=== PATIENT | female | born 1945 | race Hispanic/Latino ===

== ENCOUNTER 2019-10-21 12:11 | Outpatient (CLI) | payer MEDICARE ==
--- NOTE | 2019-10-21 13:28 | Ultrasound Report ---
LEFT BREAST ULTRASOUND HISTORY: The patient presents for evaluation of an area of clinical concern in the retroareolar area of the left breast. COMPARISON: [facility] 09/29/2019 mammogram and ultrasound. FINDINGS: Sonographic evaluation focused upon the area of clinical concern in the retroareolar locati on demonstrates mild duct ectasia at 3:00 but no intraductal mass. No cyst or suspicious shadowing. 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 No mass or suspicious finding. If the clinical examination remains stable, recommend annual screening mammographic evaluation. BIRADS 2: Benign Signer Name: Khoa Steiner MD Signed: 10/21/2019 1:24 PM Workstation Name: [id number]
== END 2019-10-21 12:12 | disposition home or self-care (01) ==
LOC: SPVWC 12:11
PROVIDERS: ATTEND Surgery
DX: N60.42 Mammary duct ectasia of left breast (principal)

== ENCOUNTER 2019-11-10 09:15 | Outpatient (CLI) | payer MEDICARE | END 2019-11-10 09:16 | disposition home or self-care (01) | LOC: LABHHL 09:15 | PROVIDERS: ATTEND Surgery | DX: N64.89 Other specified disorders of breast (principal) | CPT/HCPCS: 88305; 88312 ==

== ENCOUNTER 2019-11-20 19:51 | Emergency (ER) | payer MEDICARE ==
[2019-11-20] MEDS ORDERED: ASPIRIN 325 MG TAB PO ONE (22:51)
[2019-11-20 23:54] LABS: Basophils # (Auto) 0.1 K/mm3 (0.0-0.1); Basophils % (Auto) 0.7 % (0.0-1.8); Eosinophils # (Auto) 0.6 K/mm3 (0.0-0.4); Hematocrit 42.8 % (30.3-42.9); Hemoglobin 14.6 gm/dl (10.1-14.3); Lymphocytes # (Auto) 3.1 K/mm3 (1.2-5.4); Lymphocytes % (Auto) 38.8 % (13.4-35.0); Mean Corpuscular HGB Conc 34 % (30-34); Mean Corpuscular Volume 93 fl (79-97); Monocytes # (Auto) 0.9 K/mm3 (0.0-0.8); Monocytes % (Auto) 11.2 % (0.0-7.3); Platelet Count 184 K/mm3 (140-440); Red Blood Count 4.58 M/mm3 (3.65-5.03); Red Cell Distribution Width 14.6 % (13.2-15.2)
[2019-11-21 00:17] LABS: BUN/Creatinine Ratio 14; Blood Urea Nitrogen 17 mg/dL (7-17); Calcium 9.7 mg/dL (8.4-10.2); Hemolysis Index 26
--- NOTE | 2019-11-21 00:22 | XRay Report ---
CHEST 1 VIEW INDICATION: Chest Pain. COMPARISON: None FINDINGS: SUPPORT DEVICES: None. HEART / MEDIASTINUM: No significant abnormality. LUNGS / PLEURA: No significant pulmonary or pleural abnormality. No pneumothorax. ADDITIONAL FINDINGS: IMPRESSION: 1. No acute findings. Signer Name: Anton Mcarthur MD Signed: 11/21/2019 12:18 AM Workstation Name: [id number]
[2019-11-21] MEDS ORDERED: LIDOCAINE VISCOUS 2% 15 ML ORAL LIQD PO ONE (02:27)
[2019-11-21] MEDS ORDERED: ALUM-MAG HYDROXIDE-SIMETHICONE 200-200-20MG/5ML ORAL LIQD 30 ML PO ONE (02:27)
--- NOTE | 2019-11-21 02:27 | Emergency Department Report ---
ED General Adult HPI - General Chief complaint: Chest Pain Stated complaint: CP/SOB/DIFF SWALLOWING/RASH Time Seen by Provider: 11/21/19 01:52 Source: patient Mode of arrival: Ambulatory Limitations: No Limitations - History of Present Illness Initial comments: Patient is a 74-year-old female who presents with difficulty swallowing and rash that occurred after patient got a breast biopsy. Patient states that her pain is a burning type of pain is moderate eating or drinking makes it worse nothing makes it better. Patient follows Dr. Augustine gastritis issues. Patient also has broken on a rigid it she rash ever since she got the breast biopsy. - Related Data Home Medications Medication Instructions Recorded Confirmed Last Taken Citalopram HBr 20 mg PO DAILY 09/30/18 09/30/18 09/29/18 Dicyclomine 10 mg PO DAILY 09/30/18 09/30/18 Unknown Estradiol 0.5 mg PO DAILY 09/30/18 09/30/18 09/29/18 Hydrocodone-Acetamin 10-325 mg 1 tab PO PRN PRN 09/30/18 09/30/18 09/30/18 Hyoscyamine (Nf) 0.125 mg PO DAILY 09/30/18 09/30/18 Unknown Loperamide 2 mg PO Q6H PRN 09/30/18 09/30/18 Unknown Lyrica 75 mg PO TID 09/30/18 09/30/18 09/29/18 Megestrol Acetate 400 mg PO BID 09/30/18 09/30/18 Unknown Metoprolol Tartrate 25 mg PO DAILY 09/30/18 09/30/18 09/30/18 Omeprazole 40 mg PO DAILY 09/30/18 09/30/18 Unknown Simvastatin 20 mg PO DAILY 09/30/18 09/30/18 09/29/18 Tramadol HCl 50 mg PO DAILY 09/30/18 09/30/18 09/29/18 Triazolam 0.25 mg PO HS 09/30/18 09/30/18 09/29/18 Previous Rx's Medication Instructions Recorded Last Taken Type hydrOXYzine HCL [Atarax] 25 mg PO Q6HR PRN #30 tablet 11/21/19 Unknown Rx predniSONE [Deltasone] 20 mg PO BID #10 tab 11/21/19 Unknown Rx Allergies Allergy/AdvReac Type Severity Reaction Status Date / Time No Known Allergies Allergy Verified 09/27/18 09:44 ED Review of Systems ROS: Stated complaint: CP/SOB/DIFF SWALLOWING/RASH Other details as noted in HPI Constitutional: denies: chills, fever Eyes: denies: eye pain, eye discharge, vision change ENT: denies: ear pain, throat pain Respiratory: denies: cough, shortness of breath, wheezing Cardiovascular: denies: chest pain, palpitations Endocrine: no symptoms reported Gastrointestinal: abdominal pain. denies: nausea, diarrhea Genitourinary: denies: urgency, dysuria, discharge Musculoskeletal: denies: back pain, joint swelling, arthralgia Skin: rash. denies: lesions Neurological: denies: headache, weakness, paresthesias Psychiatric: denies: anxiety, depression Hematological/Lymphatic: denies: easy bleeding, easy bruising ED Past Medical Hx - Past Medical History Previous Medical History?: Yes Hx Hypertension: Yes Hx GERD: Yes Hx Arthritis: Yes Hx Psychiatric Treatment: Yes (Anxiety) Additional medical history: High Cholesterol, Chronic Pain - Surgical History Past Surgical History?: Yes Additional Surgical History: Left breast Biopsy - Social History Smoking Status: Never Smoker Substance Use Type: None - Medications Home Medications: Home Medications Medication Instructions Recorded Confirmed Last Taken Type Citalopram HBr 20 mg PO DAILY 09/30/18 09/30/18 09/29/18 History Dicyclomine 10 mg PO DAILY 09/30/18 09/30/18 Unknown History Estradiol 0.5 mg PO DAILY 09/30/18 09/30/18 09/29/18 History Hydrocodone-Acetamin 10-325 mg 1 tab PO PRN PRN 09/30/18 09/30/18 09/30/18 History Hyoscyamine (Nf) 0.125 mg PO DAILY 09/30/18 09/30/18 Unknown History Loperamide 2 mg PO Q6H PRN 09/30/18 09/30/18 Unknown History Lyrica 75 mg PO TID 09/30/18 09/30/18 09/29/18 History Megestrol Acetate 400 mg PO BID 09/30/18 09/30/18 Unknown History Metoprolol Tartrate 25 mg PO DAILY 09/30/18 09/30/18 09/30/18 History Omeprazole 40 mg PO DAILY 11/05/18 11/05/18 Unknown History Simvastatin 20 mg PO DAILY 09/30/18 09/30/18 09/29/18 History Tramadol HCl 50 mg PO DAILY 09/30/18 09/30/18 09/29/18 History Triazolam 0.25 mg PO HS 09/30/18 09/30/18 09/29/18 History hydrOXYzine HCL [Atarax] 25 mg PO Q6HR PRN #30 tablet 11/21/19 Unknown Rx predniSONE [Deltasone] 20 mg PO BID #10 tab 11/21/19 Unknown Rx ED Physical Exam - General Limitations: No Limitations General appearance: alert, in no apparent distress - Head Head exam: Present: atraumatic, normocephalic - Eye Eye exam: Present: normal appearance - ENT ENT exam: Present: mucous membranes moist - Neck Neck exam: Present: normal inspection - Respiratory Respiratory exam: Present: normal lung sounds bilaterally. Absent: respiratory distress - Cardiovascular Cardiovascular Exam: Present: regular rate, normal rhythm. Absent: systolic murmur, diastolic murmur, rubs, gallop - GI/Abdominal GI/Abdominal exam: Present: soft, normal bowel sounds - Extremities Exam Extremities exam: Present: normal inspection - Back Exam Back exam: Present: normal inspection - Neurological Exam Neurological exam: Present: alert, oriented X3 - Psychiatric Psychiatric exam: Present: normal affect, normal mood - Skin Skin exam: Present: warm, dry, intact, normal color. Absent: rash ED Course Vital Signs 11/20/19 19:57 Temperature 98.2 F Pulse Rate 62 Respiratory 16 Rate Blood Pressure 142/52 O2 Sat by Pulse 97 Oximetry ED Medical Decision Making - Lab Data Result diagrams: 11/20/19 23:04 11/20/19 23:04 Lab Results 11/20/19 11/20/19 11/21/19 Range/Units 23:04 23:04 02:01 WBC 8.1 (4.5-11.0) K/mm3 RBC 4.58 (3.65-5.03) M/mm3 Hgb 14.6 H (10.1-14.3) gm/dl Hct 42.8 (30.3-42.9) % MCV 93 (79-97) fl MCH 32 (28-32) pg MCHC 34 (30-34) % RDW 14.6 (13.2-15.2) % Plt Count 184 (140-440) K/mm3 Lymph % (Auto) 38.8 H (13.4-35.0) % [place] % (Auto) 11.2 H (0.0-7.3) % Eos % (Auto) 7.0 H (0.0-4.3) % Baso % (Auto) 0.7 (0.0-1.8) % Lymph # 3.1 (1.2-5.4) K/mm3 [place] # 0.9 H (0.0-0.8) K/mm3 Eos # 0.6 H (0.0-0.4) K/mm3 Baso # 0.1 (0.0-0.1) K/mm3 Seg Neutrophils % 42.3 (40.0-70.0) % Seg Neutrophils # 3.4 (1.8-7.7) K/mm3 Sodium 142 (137-145) mmol/L Potassium 4.3 (3.6-5.0) mmol/L Chloride 105.3 (98-107) mmol/L Carbon Dioxide 27 (22-30) mmol/L Anion Gap 14 mmol/L BUN 17 (7-17) mg/dL Creatinine 1.2 (0.7-1.2) mg/dL Estimated GFR 44 ml/min BUN/Creatinine Ratio 14 % Glucose 100 (65-100) mg/dL Calcium 9.7 (8.4-10.2) mg/dL Troponin T < 0.010 < 0.010 (0.00-0.029) ng/mL - EKG Data -: EKG Interpreted by Nm - EKG Data 11/21/19 03:53 EKG shows rate 61 patient has normal sinus rhythm no ST segment elevation or T- wave inversion impression normal axis - Radiology Data Radiology results: report reviewed, image reviewed Chest x-ray: Shows no acute cardiopulmonary disease - Medical Decision Making Chief Medical diagnosis: GERD Differential medical diagnosis: NSTEMI, allergic reaction I will get blood work, as x-ray and ORAL Benadryl and I'll oral GI cocktail ED workup was unremarkable I'll have patient follow up with Dr. Augustine and I will send patient home with steroids and viscous lidocaine. Additional verbal discharge instructions were given. Critical care attestation.: If time is entered above; I have spent that time in minutes in the direct care of this critically ill patient, excluding procedure time. ED Disposition Clinical Impression: Skin rash GERD (gastroesophageal reflux disease) Qualifiers: Esophagitis presence: esophagitis presence not specified Qualified Code(s): K21.9 - Gastro-esophageal reflux disease without esophagitis Disposition: TO HOME OR SELFCARE Is pt being admited?: No Does the pt Need Aspirin: No Condition: Stable Instructions: Diet for Ulcers and Gastritis (ED) Prescriptions: hydrOXYzine HCL [Atarax] 25 mg PO Q6HR PRN #30 tablet PRN Reason: Itching predniSONE [Deltasone] 20 mg PO BID #10 tab Referrals: PRIMARY CARE, [Primary Care Provider] - 3-5 Days
[2019-11-21] MEDS ORDERED: predniSONE 20 MG TAB PO ONE (02:28)
[2019-11-21] MEDS ORDERED: hydrOXYzine HCL 25 MG TAB PO ONE (03:15)
[2019-11-21 04:27] VITALS: BP 145/61
== END 2019-11-21 04:27 | disposition home or self-care (01) ==
LOC: ED 19:51
DX: K21.9 Gastro-esophageal reflux disease without esophagitis (principal); R21 Rash and other nonspecific skin eruption; I10 Essential (primary) hypertension; M19.90 Unspecified osteoarthritis, unspecified site; F41.9 Anxiety disorder, unspecified; E78.00 Pure hypercholesterolemia, unspecified; Z98.890 Other specified postprocedural states; Z79.899 Other long term (current) drug therapy
CPT/HCPCS: 36415; 71045; 80048; 84484; 85025; 93005; 93010; 99284; J7512